=== PATIENT | male | born 1955 | race Two or more races ===

== ENCOUNTER → 2017-09-02 | Outpatient (CLI) | payer OTHER ==
[~2017-09-02] MED LIST: PERFLUTREN PROTEIN-A MICROSPHERES 0.22 MG/ML 3 ML VIAL IVP ONE
== END | disposition home or self-care (01) ==
LOC: CARDMN 10:30
PROVIDERS: ATTEND Internal Medicine Cardiovascular Disease
DX: I08.1 Rheumatic disorders of both mitral and tricuspid valves (principal); I50.9 Heart failure, unspecified
CPT/HCPCS: C8929; Z7610

== ENCOUNTER 2017-11-29 07:50 | Day surgery (SDC) | payer OTHER ==
[~2017-11-29] VITALS: Ht 172.7 cm; Wt 89.1 kg
[2017-11-29] MEDS ORDERED: 0.9% SODIUM CHLORIDE 10 ML SYRINGE IVP PRN (08:00)
[2017-11-29] MEDS ORDERED: METOPROLOL TARTRATE 50 MG TABLET PO PRN (08:00)
[2017-11-29] MEDS ORDERED: ASPI81 PO (09:17)
[2017-11-29] MEDS ORDERED: SACU1TAB PO (09:17)
[2017-11-29] MEDS ORDERED: ATOR40TA28 PO (09:17)
[2017-11-29] MEDS ORDERED: WARF3TAB29 PO (09:17)
[2017-11-29] MEDS ORDERED: EZET10 PO (09:17)
[2017-11-29] MEDS ORDERED: CARV12 PO (09:17)
[2017-11-29] MEDS ORDERED: FURO40 PO (09:17)
[2017-11-29 09:36] LABS: ANION GAP 7 mmol/L (8-16); CALCIUM, TOTAL 8.7 mg/dL (8.8-10.5); CARBON DIOXIDE 28 mmol/L (22-29); CHLORIDE 106 mmol/L (98-107); CREATININE 1.12 mg/dL (0.60-1.30); GLOMERULAR FILTR. RATE CALC > 60 mL/min (>60); GLUCOSE,RANDOM 101 mg/dL (70-110); POTASSIUM 3.7 mmol/L (3.5-5.1); SODIUM SERUM 141 mmol/L (136-145); UREA NITROGEN, BLOOD 22 mg/dL (7-18)
[2017-11-29] MEDS ORDERED: SODIUM CHLORIDE 0.9% 100 ML ONE ×2 (09:37→11:54)
[2017-11-29] MEDS ORDERED: IOVERSOL 350 MG/ML 150 ML VIAL ONE ×2 (09:37→11:53)
[2017-11-29 10:23] LABS: GLUCOMETER DEV NAME(LOC) SDS 5; GLUCOSE,POINT OF CARE 91 MG/DL (70-110)
[2017-11-29] MEDS ORDERED: SODIUM CHLORIDE 0.9% 250 ML IV ONE (10:30)
[2017-11-29] MEDS ORDERED: NITROGLYCERIN 400 MCG/SUBLINGUAL SPRAY 4.9 GM BOTTLE SL ONE ×2 (11:59→12:19)
[2017-11-29] MEDS ORDERED: METOPROLOL TARTRATE 5 MG/5 ML VIAL IVP ONE (12:12)
[2017-11-29] MEDS ORDERED: METOPROLOL TARTRATE 5 MG/5 ML VIAL ONE (12:45)
== END 2017-11-29 13:00 | disposition home or self-care (01) ==
LOC: SURGERY 07:50 → EDSTATUS 10:00 → SURGERY 13:00
PROVIDERS: ATTEND Internal Medicine Cardiovascular Disease
DX: I25.798 Atherosclerosis of other coronary artery bypass graft(s) with other forms of angina pectoris (principal); I50.9 Heart failure, unspecified; I25.2 Old myocardial infarction; I11.0 Hypertensive heart disease with heart failure; E78.00 Pure hypercholesterolemia, unspecified; I42.5 Other restrictive cardiomyopathy; E11.9 Type 2 diabetes mellitus without complications; I08.1 Rheumatic disorders of both mitral and tricuspid valves; Z79.82 Long term (current) use of aspirin; Z86.74 Personal history of sudden cardiac arrest; Z79.84 Long term (current) use of oral hypoglycemic drugs; Z79.01 Long term (current) use of anticoagulants; Z95.1 Presence of aortocoronary bypass graft; Z72.89 Other problems related to lifestyle; Z95.0 Presence of cardiac pacemaker; Z88.8 Allergy status to other drugs, medicaments and biological substances; Z98.890 Other specified postprocedural states; Z79.899 Other long term (current) drug therapy
CPT/HCPCS: 36415; 75574; 80048; 82962; 93005; J3490; J7050 ×2; Q9967

== ENCOUNTER → 2018-11-02 | Outpatient (CLI) | payer OTHER ==
[~2018-11-02] MED LIST changes: +ASPI81 PO; +ATOR40TA28 PO; +CARV12 PO; +EZET10 PO; +FURO40 PO; +IOVERSOL 350 MG/ML 150 ML VIAL ONE; -PERFLUTREN PROTEIN-A MICROSPHERES 0.22 MG/ML 3 ML VIAL IVP ONE; +SACU1TAB PO; +SODIUM CHLORIDE 0.9% 100 ML ONE; +WARF3TAB29 PO
== END | disposition home or self-care (01) ==
LOC: RADMN 08:04
PROVIDERS: ATTEND Internal Medicine Cardiovascular Disease
DX: I70.202 Unspecified atherosclerosis of native arteries of extremities, left leg (principal); K57.30 Diverticulosis of large intestine without perforation or abscess without bleeding; N40.0 Benign prostatic hyperplasia without lower urinary tract symptoms; K42.9 Umbilical hernia without obstruction or gangrene
CPT/HCPCS: 75635; J7050; Q9967

== ENCOUNTER 2019-07-04 15:00 | Inpatient (IN) | payer MEDICAID, OTHER ==
[~2019-07-04] VITALS: Ht 172.7 cm; Wt 70.3 kg
[2019-07-04 15:00] VITALS: BP 147/86
[~2019-07-04 15:00] MED LIST changes: +ASPI-728 PO; -ASPI81 PO; -EZET10 PO; +EZET10TA13 PO; -IOVERSOL 350 MG/ML 150 ML VIAL ONE; -SODIUM CHLORIDE 0.9% 100 ML ONE
[2019-07-04] MEDS ORDERED: DEXTROSE 50%-WATER 25 GM/50 ML SYRINGE IVP PRN (16:45)
[2019-07-04] MEDS ORDERED: TraMADol HCL 50 MG TABLET PO PRN (17:15)
[2019-07-04 18:01] LABS: GLUCOMETER DEV NAME(LOC) 2WR.2; GLUCOSE,POINT OF CARE 235 MG/DL (70-110)
[2019-07-04] MEDS: INSULIN LISPRO 100 UNITS/ML SQ SCH (18:13)
[2019-07-04] MEDS: INSULIN LISPRO 100 UNITS/ML SQ PRN (18:14)
[2019-07-04] MEDS: SENNA 187 MG TABLET PO SCH (21:00)
[2019-07-04] MEDS ORDERED: MYCOPHENOLATE MOFETIL 250 MG CAPSULE PO SCH (21:00)
[2019-07-04] MEDS ORDERED: TACROLIMUS ANHYDROUS 1 MG CAPSULE PO SCH (21:00)
[2019-07-04] MEDS: DOCUSATE SODIUM 250 MG CAPSULE PO SCH (21:00)
[2019-07-04] MEDS: MAGNESIUM OXIDE 400 MG TABLET PO SCH (21:18)
[2019-07-04] MEDS: PRAVASTATIN SODIUM 40 MG TABLET PO SCH (21:20)
[2019-07-04] MEDS: MELATONIN 5 MG TABLET PO SCH (21:22)
[2019-07-04] MEDS: HEPARIN SODIUM,PORCINE 5,000 UNITS/ML VIAL SQ SCH (21:22)
[2019-07-04 22:35] LABS: GLUCOMETER DEV NAME(LOC) 2WR.1C; GLUCOSE,POINT OF CARE 91 MG/DL (70-110)
[2019-07-04 22:35] LABS: GLUCOMETER DEV NAME(LOC) 2WR.1C; GLUCOSE,POINT OF CARE 63 MG/DL (70-110)
[2019-07-04 22:35] LABS: GLUCOMETER DEV NAME(LOC) 2WR.2; GLUCOSE,POINT OF CARE 71 MG/DL (70-110)
[2019-07-05] VITALS: BP 134/73
[2019-07-05 06:10] LABS: GLUCOMETER DEV NAME(LOC) 2WR.1C; GLUCOSE,POINT OF CARE 89 MG/DL (70-110)
[2019-07-05 07:01] LABS: EOSINOPHILS % (AUTO) 0.4 % (1.0-6.0); HEMATOCRIT 28.5 % (41-53); HEMOGLOBIN 9.4 g/dL (13.5-17.5); LYMPHOCYTES # (AUTO) 1.2 K/uL (1.0-4.8); LYMPHOCYTES % (AUTO) 21.6 % (22.0-44.0); MEAN CORPUSCULAR HEMOGLOBIN 34.2 pg (26.0-34.0); MEAN CORPUSCULAR HGB CONC 33.2 G/dL (31.0-37.0); MEAN CORPUSCULAR VOLUME 103 fL (80-100); MONOCYTES # (AUTO) 0.5 K/uL (0.1-1.0); MONOCYTES % (AUTO) 10.3 % (2.0-9.0); NEUTROPHILS # (AUTO) 3.6 K/uL (1.8-7.7); NEUTROPHILS % (AUTO) 66.7 % (40.0-70.0); PLATELET COUNT (AUTO) 334 K/uL (150-450); RED BLOOD CELL COUNT(AUTO) 2.76 MIL/uL (4.50-5.90); RED CELL DISTRIBUTION WIDTH 20.9 % (11.5-14.5)
[2019-07-05 07:12] LABS: ALBUMIN 3.2 g/dL (3.4-5.0); BILIRUBIN,TOTAL 0.4 mg/dL (0.1-1.0); CALCIUM, TOTAL 9.4 mg/dL (8.8-10.5); CREATININE 1.4 mg/dL (0.60-1.30); POTASSIUM 4.1 mmol/L (3.5-5.1); TOTAL PROTEIN, SERUM 6.2 g/dL (6.4-8.2)
[2019-07-05] MEDS ORDERED: TACROLIMUS ANHYDROUS 1 MG CAPSULE PO SCH ×2 (07:15→20:00)
[2019-07-05] MEDS: INSULIN LISPRO 100 UNITS/ML SQ SCH ×3 (07:30→17:46)
[2019-07-05] MEDS: TACROLIMUS ANHYDROUS 1 MG CAPSULE PO SCH ×2 (07:48→20:50)
[2019-07-05] MEDS: FAMOTIDINE 20 MG TABLET PO SCH (07:49)
[2019-07-05] MEDS: VITAMIN B COMP/VIT C/FOLIC ACID CAPSULE PO SCH (07:50)
[2019-07-05] MEDS: FERROUS SULFATE 325 MG EC TABLET PO SCH (07:50)
[2019-07-05] MEDS: MYCOPHENOLATE MOFETIL 250 MG CAPSULE PO SCH ×2 (07:50→20:50)
[2019-07-05] MEDS: PredniSONE 5 MG TABLET PO SCH (07:54)
[2019-07-05] MEDS: CHOLECALCIFEROL (VIT D3) 1,000 UNITS TABLET PO SCH (07:54)
[2019-07-05] MEDS: ASPIRIN 81 MG EC TABLET PO SCH (07:55)
[2019-07-05] MEDS: SERTRALINE HCL 50 MG TABLET PO SCH (07:55)
[2019-07-05] MEDS: DOCUSATE SODIUM 250 MG CAPSULE PO SCH ×2 (07:56→20:52)
[2019-07-05] MEDS: MAGNESIUM OXIDE 400 MG TABLET PO SCH ×2 (07:56→20:51)
[2019-07-05] MEDS: HEPARIN SODIUM,PORCINE 5,000 UNITS/ML VIAL SQ SCH ×2 (07:57→20:51)
[2019-07-05 08:00] VITALS: BP 139/76
[2019-07-05] MEDS ORDERED: FAMOTIDINE 20 MG TABLET PO SCH (09:00)
[2019-07-05 12:53] LABS: GLUCOMETER DEV NAME(LOC) 2WR.2; GLUCOSE,POINT OF CARE 162 MG/DL (70-110)
[2019-07-05] MEDS: INSULIN LISPRO 100 UNITS/ML SQ PRN (13:15)
[2019-07-05 15:10] VITALS: BP 119/67
[2019-07-05 17:57] LABS: GLUCOMETER DEV NAME(LOC) 2WR.1C; GLUCOSE,POINT OF CARE 133 MG/DL (70-110)
[2019-07-05] MEDS: PRAVASTATIN SODIUM 40 MG TABLET PO SCH (20:51)
[2019-07-05] MEDS: SENNA 187 MG TABLET PO SCH (20:52)
[2019-07-05] MEDS: MELATONIN 5 MG TABLET PO SCH (20:52)
[2019-07-05 21:39] LABS: GLUCOMETER DEV NAME(LOC) 2WR.1C; GLUCOSE,POINT OF CARE 110 MG/DL (70-110)
[2019-07-06 01:00] VITALS: BP 150/85
[2019-07-06 06:28] LABS: GLUCOMETER DEV NAME(LOC) 2WR.2; GLUCOSE,POINT OF CARE 89 MG/DL (70-110)
[2019-07-06] MEDS: TACROLIMUS ANHYDROUS 1 MG CAPSULE PO SCH ×2 (06:35→20:44)
[2019-07-06] MEDS: FAMOTIDINE 20 MG TABLET PO SCH (06:36)
[2019-07-06] MEDS: MYCOPHENOLATE MOFETIL 250 MG CAPSULE PO SCH ×2 (06:37→20:44)
[2019-07-06 07:30] VITALS: BP 158/80
[2019-07-06] MEDS: INSULIN LISPRO 100 UNITS/ML SQ SCH ×3 (07:30→18:24)
[2019-07-06] MEDS: SERTRALINE HCL 50 MG TABLET PO SCH (08:12)
[2019-07-06] MEDS: PredniSONE 5 MG TABLET PO SCH (08:12)
[2019-07-06] MEDS: SULFAMETHOX/TRIMETH DS 800-160 MG/TABLET PO SCH (08:13)
[2019-07-06] MEDS: MAGNESIUM OXIDE 400 MG TABLET PO SCH ×2 (08:13→20:45)
[2019-07-06] MEDS: CHOLECALCIFEROL (VIT D3) 1,000 UNITS TABLET PO SCH (08:13)
[2019-07-06] MEDS: VITAMIN B COMP/VIT C/FOLIC ACID CAPSULE PO SCH (08:13)
[2019-07-06] MEDS: DOCUSATE SODIUM 250 MG CAPSULE PO SCH ×2 (08:13→20:46)
[2019-07-06] MEDS: ASPIRIN 81 MG EC TABLET PO SCH (08:13)
[2019-07-06] MEDS: FERROUS SULFATE 325 MG EC TABLET PO SCH (08:13)
[2019-07-06] MEDS: HEPARIN SODIUM,PORCINE 5,000 UNITS/ML VIAL SQ SCH ×2 (08:14→20:45)
[2019-07-06] MEDS: INSULIN LISPRO 100 UNITS/ML SQ PRN ×3 (13:06→20:47)
[2019-07-06 19:20] VITALS: BP 118/68
[2019-07-06] MEDS: PRAVASTATIN SODIUM 40 MG TABLET PO SCH (20:45)
[2019-07-06] MEDS: MELATONIN 5 MG TABLET PO SCH (20:46)
[2019-07-06] MEDS: SENNA 187 MG TABLET PO SCH (20:46)
[2019-07-06] MEDS: ACETAMINOPHEN 325 MG TABLET PO PRN (21:02)
[2019-07-06 21:29] LABS: GLUCOMETER DEV NAME(LOC) 2WR.2; GLUCOSE,POINT OF CARE 222 MG/DL (70-110)
[2019-07-06 21:39] LABS: GLUCOMETER DEV NAME(LOC) 2WR.1C; GLUCOSE,POINT OF CARE 160 MG/DL (70-110)
[2019-07-06 21:39] LABS: GLUCOMETER DEV NAME(LOC) 2WR.1C; GLUCOSE,POINT OF CARE 203 MG/DL (70-110)
[2019-07-07 00:24] VITALS: BP 145/80
[2019-07-07 06:09] LABS: GLUCOMETER DEV NAME(LOC) 2WR.1C; GLUCOSE,POINT OF CARE 89 MG/DL (70-110)
[2019-07-07] MEDS: TACROLIMUS ANHYDROUS 1 MG CAPSULE PO SCH ×2 (06:29→20:19)
[2019-07-07] MEDS: MYCOPHENOLATE MOFETIL 250 MG CAPSULE PO SCH ×2 (06:29→20:19)
[2019-07-07] MEDS: FAMOTIDINE 20 MG TABLET PO SCH (06:32)
[2019-07-07 07:30] VITALS: BP 151/87
[2019-07-07] MEDS: INSULIN LISPRO 100 UNITS/ML SQ SCH ×3 (07:38→17:49)
[2019-07-07] MEDS: FERROUS SULFATE 325 MG EC TABLET PO SCH (07:39)
[2019-07-07] MEDS: HEPARIN SODIUM,PORCINE 5,000 UNITS/ML VIAL SQ SCH ×2 (07:39→20:51)
[2019-07-07] MEDS: CHOLECALCIFEROL (VIT D3) 1,000 UNITS TABLET PO SCH (07:45)
[2019-07-07] MEDS: PredniSONE 5 MG TABLET PO SCH (07:45)
[2019-07-07] MEDS: VITAMIN B COMP/VIT C/FOLIC ACID CAPSULE PO SCH (07:45)
[2019-07-07] MEDS: DOCUSATE SODIUM 250 MG CAPSULE PO SCH ×3 (07:45→21:00)
[2019-07-07] MEDS: MAGNESIUM OXIDE 400 MG TABLET PO SCH ×2 (07:45→20:51)
[2019-07-07] MEDS: SERTRALINE HCL 50 MG TABLET PO SCH (07:46)
[2019-07-07] MEDS: ASPIRIN 81 MG EC TABLET PO SCH (07:46)
[2019-07-07 15:26] VITALS: BP 131/75
[2019-07-07 17:19] LABS: GLUCOMETER DEV NAME(LOC) 2WR.1C; GLUCOSE,POINT OF CARE 109 MG/DL (70-110)
[2019-07-07 17:33] LABS: GLUCOMETER DEV NAME(LOC) 2WR.2; GLUCOSE,POINT OF CARE 200 MG/DL (70-110)
[2019-07-07] MEDS: INSULIN LISPRO 100 UNITS/ML SQ PRN ×2 (17:50→21:13)
[2019-07-07] MEDS: PRAVASTATIN SODIUM 40 MG TABLET PO SCH (20:50)
[2019-07-07] MEDS: SENNA 187 MG TABLET PO SCH ×2 (20:50→21:00)
[2019-07-07] MEDS: MELATONIN 5 MG TABLET PO SCH ×2 (20:50→21:00)
[2019-07-07] MEDS: ACETAMINOPHEN 325 MG TABLET PO PRN (20:55)
[2019-07-07 23:18] LABS: GLUCOMETER DEV NAME(LOC) 2WR.2; GLUCOSE,POINT OF CARE 182 MG/DL (70-110)
[2019-07-08 02:30] VITALS: BP 141/77
[2019-07-08] MEDS: FAMOTIDINE 20 MG TABLET PO SCH (06:26)
[2019-07-08] MEDS: TACROLIMUS ANHYDROUS 1 MG CAPSULE PO SCH ×2 (06:27→20:05)
[2019-07-08] MEDS: MYCOPHENOLATE MOFETIL 250 MG CAPSULE PO SCH ×2 (06:28→20:04)
[2019-07-08 06:38] LABS: GLUCOMETER DEV NAME(LOC) 2WR.2; GLUCOSE,POINT OF CARE 101 MG/DL (70-110)
[2019-07-08 08:08] VITALS: BP 152/85
[2019-07-08] MEDS: FERROUS SULFATE 325 MG EC TABLET PO SCH (08:19)
[2019-07-08] MEDS: ASPIRIN 81 MG EC TABLET PO SCH (08:19)
[2019-07-08] MEDS: VITAMIN B COMP/VIT C/FOLIC ACID CAPSULE PO SCH (08:19)
[2019-07-08] MEDS: MAGNESIUM OXIDE 400 MG TABLET PO SCH ×2 (08:19→20:04)
[2019-07-08] MEDS: CHOLECALCIFEROL (VIT D3) 1,000 UNITS TABLET PO SCH (08:19)
[2019-07-08] MEDS: SERTRALINE HCL 50 MG TABLET PO SCH (08:19)
[2019-07-08] MEDS: PredniSONE 5 MG TABLET PO SCH (08:20)
[2019-07-08] MEDS: HEPARIN SODIUM,PORCINE 5,000 UNITS/ML VIAL SQ SCH ×2 (08:22→20:05)
[2019-07-08] MEDS: INSULIN LISPRO 100 UNITS/ML SQ SCH ×3 (08:37→18:00)
[2019-07-08] MEDS: DOCUSATE SODIUM 250 MG CAPSULE PO SCH ×3 (08:38→20:17)
[2019-07-08 13:38] VITALS: BP 138/71
[2019-07-08] MEDS: AmLODIPine BESYLATE 2.5 MG TABLET PO SCH (13:39)
[2019-07-08 15:30] VITALS: BP 127/79
[2019-07-08 15:42] LABS: GLUCOMETER DEV NAME(LOC) 2WR.1C; GLUCOSE,POINT OF CARE 113 MG/DL (70-110)
[2019-07-08] MEDS: INSULIN LISPRO 100 UNITS/ML SQ PRN (18:00)
[2019-07-08] MEDS: MELATONIN 5 MG TABLET PO SCH (20:04)
[2019-07-08] MEDS: SENNA 187 MG TABLET PO SCH ×2 (20:04→20:17)
[2019-07-08] MEDS: PRAVASTATIN SODIUM 40 MG TABLET PO SCH (20:05)
[2019-07-08 20:31] LABS: GLUCOMETER DEV NAME(LOC) 2WR.2; GLUCOSE,POINT OF CARE 154 MG/DL (70-110)
[2019-07-09 04:38] VITALS: BP 155/82
[2019-07-09] MEDS: MYCOPHENOLATE MOFETIL 250 MG CAPSULE PO SCH ×2 (05:11→20:22)
[2019-07-09] MEDS: TACROLIMUS ANHYDROUS 1 MG CAPSULE PO SCH (05:11)
[2019-07-09] MEDS: FAMOTIDINE 20 MG TABLET PO SCH (05:11)
[2019-07-09] MEDS: FERROUS SULFATE 325 MG EC TABLET PO SCH (05:13)
[2019-07-09 05:15] LABS: GLUCOMETER DEV NAME(LOC) 2WR.1C; GLUCOSE,POINT OF CARE 168 MG/DL (70-110)
[2019-07-09 05:26] LABS: GLUCOMETER DEV NAME(LOC) 2WR.2; GLUCOSE,POINT OF CARE 111 MG/DL (70-110)
[2019-07-09] MEDS: INSULIN LISPRO 100 UNITS/ML SQ SCH ×3 (07:30→17:36)
[2019-07-09] MEDS: DOCUSATE SODIUM 250 MG CAPSULE PO SCH ×2 (09:00→20:23)
[2019-07-09 12:08] LABS: GLUCOMETER DEV NAME(LOC) 2WR.2; GLUCOSE,POINT OF CARE 162 MG/DL (70-110)
[2019-07-09] MEDS: MAGNESIUM OXIDE 400 MG TABLET PO SCH ×2 (12:42→20:23)
[2019-07-09] MEDS: ASPIRIN 81 MG EC TABLET PO SCH (12:43)
[2019-07-09] MEDS: VITAMIN B COMP/VIT C/FOLIC ACID CAPSULE PO SCH (12:44)
[2019-07-09] MEDS: SULFAMETHOX/TRIMETH DS 800-160 MG/TABLET PO SCH (12:44)
[2019-07-09] MEDS: CHOLECALCIFEROL (VIT D3) 1,000 UNITS TABLET PO SCH (12:44)
[2019-07-09] MEDS: HEPARIN SODIUM,PORCINE 5,000 UNITS/ML VIAL SQ SCH ×2 (12:47→20:23)
[2019-07-09 12:50] VITALS: BP 127/80
[2019-07-09] MEDS: INSULIN LISPRO 100 UNITS/ML SQ PRN (12:52)
[2019-07-09] MEDS: PredniSONE 5 MG TABLET PO SCH (12:58)
[2019-07-09] MEDS: SERTRALINE HCL 50 MG TABLET PO SCH (12:58)
[2019-07-09] MEDS: AmLODIPine BESYLATE 2.5 MG TABLET PO SCH (12:58)
[2019-07-09 14:35] VITALS: BP 120/80
[2019-07-09 16:00] VITALS: BP 151/77
[2019-07-09] MEDS: PRAVASTATIN SODIUM 40 MG TABLET PO SCH (20:22)
[2019-07-09] MEDS: MELATONIN 5 MG TABLET PO SCH (20:23)
[2019-07-09] MEDS: SENNA 187 MG TABLET PO SCH (20:24)
[2019-07-09 20:49] LABS: GLUCOMETER DEV NAME(LOC) 2WR.2; GLUCOSE,POINT OF CARE 125 MG/DL (70-110)
[2019-07-10 01:00] VITALS: BP 150/84
[2019-07-10 05:36] LABS: GLUCOMETER DEV NAME(LOC) 2WR.1C; GLUCOSE,POINT OF CARE 74 MG/DL (70-110)
[2019-07-10] MEDS: MYCOPHENOLATE MOFETIL 250 MG CAPSULE PO SCH ×2 (06:10→20:21)
[2019-07-10] MEDS: TACROLIMUS ANHYDROUS 1 MG CAPSULE PO SCH ×2 (06:11→20:21)
[2019-07-10] MEDS: FAMOTIDINE 20 MG TABLET PO SCH (06:11)
[2019-07-10 06:34] LABS: GLUCOMETER DEV NAME(LOC) 2WR.2; GLUCOSE,POINT OF CARE 99 MG/DL (70-110)
[2019-07-10] MEDS: AmLODIPine BESYLATE 2.5 MG TABLET PO SCH (08:22)
[2019-07-10] MEDS: FERROUS SULFATE 325 MG EC TABLET PO SCH (08:23)
[2019-07-10] MEDS: VITAMIN B COMP/VIT C/FOLIC ACID CAPSULE PO SCH (08:23)
[2019-07-10] MEDS: CHOLECALCIFEROL (VIT D3) 1,000 UNITS TABLET PO SCH (08:23)
[2019-07-10] MEDS: SERTRALINE HCL 50 MG TABLET PO SCH (08:23)
[2019-07-10] MEDS: PredniSONE 5 MG TABLET PO SCH (08:24)
[2019-07-10] MEDS: ASPIRIN 81 MG EC TABLET PO SCH (08:24)
[2019-07-10] MEDS: MAGNESIUM OXIDE 400 MG TABLET PO SCH ×2 (08:24→20:21)
[2019-07-10] MEDS: DOCUSATE SODIUM 250 MG CAPSULE PO SCH ×2 (08:25→20:22)
[2019-07-10] MEDS: HEPARIN SODIUM,PORCINE 5,000 UNITS/ML VIAL SQ SCH ×2 (08:25→20:22)
[2019-07-10] MEDS: INSULIN LISPRO 100 UNITS/ML SQ SCH ×3 (08:36→17:35)
[2019-07-10 08:44] VITALS: BP 134/92
[2019-07-10] MEDS: LIDOCAINE 5% TRANSDERMAL PATCH TD SCH (10:30)
[2019-07-10] MEDS: INSULIN LISPRO 100 UNITS/ML SQ PRN (12:21)
[2019-07-10] MEDS: ACETAMINOPHEN 325 MG TABLET PO PRN (14:23)
[2019-07-10 16:22] VITALS: BP 148/74
[2019-07-10 18:47] LABS: GLUCOMETER DEV NAME(LOC) 2WR.2; GLUCOSE,POINT OF CARE 125 MG/DL (70-110)
[2019-07-10] MEDS: PRAVASTATIN SODIUM 40 MG TABLET PO SCH (20:21)
[2019-07-10] MEDS: MELATONIN 5 MG TABLET PO SCH ×2 (20:21→22:46)
[2019-07-10] MEDS: SENNA 187 MG TABLET PO SCH (20:22)
[2019-07-10] MEDS: -LIDODERM PATCH NOTE- MISC SCH (20:22)
[2019-07-10 21:59] LABS: GLUCOMETER DEV NAME(LOC) 2WR.2; GLUCOSE,POINT OF CARE 122 MG/DL (70-110)
[2019-07-10 23:29] LABS: GLUCOMETER DEV NAME(LOC) 2WR.1C; GLUCOSE,POINT OF CARE 149 MG/DL (70-110)
[2019-07-10 23:53] VITALS: BP 143/75
[2019-07-11 05:44] LABS: GLUCOMETER DEV NAME(LOC) 2WR.1C; GLUCOSE,POINT OF CARE 92 MG/DL (70-110)
[2019-07-11] MEDS: FAMOTIDINE 20 MG TABLET PO SCH (06:28)
[2019-07-11] MEDS: TACROLIMUS ANHYDROUS 1 MG CAPSULE PO SCH ×2 (06:28→20:04)
[2019-07-11] MEDS: MYCOPHENOLATE MOFETIL 250 MG CAPSULE PO SCH ×2 (06:28→20:03)
[2019-07-11] MEDS: INSULIN LISPRO 100 UNITS/ML SQ SCH ×3 (07:30→17:48)
[2019-07-11 07:36] VITALS: BP 161/87
[2019-07-11] MEDS: HEPARIN SODIUM,PORCINE 5,000 UNITS/ML VIAL SQ SCH ×2 (08:46→20:06)
[2019-07-11] MEDS: PredniSONE 5 MG TABLET PO SCH (08:48)
[2019-07-11] MEDS: ASPIRIN 81 MG EC TABLET PO SCH (08:48)
[2019-07-11] MEDS: SERTRALINE HCL 50 MG TABLET PO SCH (08:48)
[2019-07-11] MEDS: CHOLECALCIFEROL (VIT D3) 1,000 UNITS TABLET PO SCH (08:49)
[2019-07-11] MEDS: AmLODIPine BESYLATE 2.5 MG TABLET PO SCH (08:49)
[2019-07-11] MEDS: MAGNESIUM OXIDE 400 MG TABLET PO SCH ×2 (08:49→20:06)
[2019-07-11] MEDS: FERROUS SULFATE 325 MG EC TABLET PO SCH (08:49)
[2019-07-11] MEDS: SULFAMETHOX/TRIMETH DS 800-160 MG/TABLET PO SCH (08:49)
[2019-07-11] MEDS: VITAMIN B COMP/VIT C/FOLIC ACID CAPSULE PO SCH (08:49)
[2019-07-11] MEDS: DOCUSATE SODIUM 250 MG CAPSULE PO SCH ×2 (08:50→20:09)
[2019-07-11] MEDS: LIDOCAINE 5% TRANSDERMAL PATCH TD SCH (08:59)
[2019-07-11] MEDS ORDERED: EPOETIN ALFA 10,000 UNITS/ML VIAL SQ SCH (09:00)
[2019-07-11] MEDS: INSULIN LISPRO 100 UNITS/ML SQ PRN ×3 (12:28→20:29)
[2019-07-11 15:28] LABS: GLUCOMETER DEV NAME(LOC) 2WR.1C; GLUCOSE,POINT OF CARE 199 MG/DL (70-110)
[2019-07-11 16:35] VITALS: BP 125/75
[2019-07-11 17:57] LABS: GLUCOMETER DEV NAME(LOC) 2WR.1C; GLUCOSE,POINT OF CARE 189 MG/DL (70-110)
[2019-07-11] MEDS: -LIDODERM PATCH NOTE- MISC SCH (20:05)
[2019-07-11] MEDS: PRAVASTATIN SODIUM 40 MG TABLET PO SCH (20:07)
[2019-07-11] MEDS: SENNA 187 MG TABLET PO SCH (20:08)
[2019-07-11] MEDS: MELATONIN 5 MG TABLET PO SCH (20:08)
[2019-07-11 22:31] LABS: GLUCOMETER DEV NAME(LOC) 2WR.1C; GLUCOSE,POINT OF CARE 151 MG/DL (70-110)
[2019-07-12 00:29] VITALS: BP 146/79
[2019-07-12 06:14] LABS: GLUCOMETER DEV NAME(LOC) 2WR.2; GLUCOSE,POINT OF CARE 97 MG/DL (70-110)
[2019-07-12] MEDS: FAMOTIDINE 20 MG TABLET PO SCH (06:24)
[2019-07-12] MEDS: MYCOPHENOLATE MOFETIL 250 MG CAPSULE PO SCH ×2 (06:24→21:13)
[2019-07-12] MEDS: TACROLIMUS ANHYDROUS 1 MG CAPSULE PO SCH ×2 (06:25→21:12)
[2019-07-12 07:29] VITALS: BP 142/87
[2019-07-12] MEDS: LIDOCAINE 5% TRANSDERMAL PATCH TD SCH (07:57)
[2019-07-12] MEDS: DOCUSATE SODIUM 250 MG CAPSULE PO SCH ×2 (07:57→21:00)
[2019-07-12] MEDS: HEPARIN SODIUM,PORCINE 5,000 UNITS/ML VIAL SQ SCH ×2 (07:58→21:14)
[2019-07-12] MEDS: VITAMIN B COMP/VIT C/FOLIC ACID CAPSULE PO SCH (07:59)
[2019-07-12] MEDS: MAGNESIUM OXIDE 400 MG TABLET PO SCH ×2 (07:59→21:13)
[2019-07-12] MEDS: ASPIRIN 81 MG EC TABLET PO SCH (07:59)
[2019-07-12] MEDS: CHOLECALCIFEROL (VIT D3) 1,000 UNITS TABLET PO SCH (07:59)
[2019-07-12] MEDS: FERROUS SULFATE 325 MG EC TABLET PO SCH (07:59)
[2019-07-12] MEDS: SERTRALINE HCL 50 MG TABLET PO SCH (07:59)
[2019-07-12] MEDS: PredniSONE 5 MG TABLET PO SCH (07:59)
[2019-07-12] MEDS: INSULIN LISPRO 100 UNITS/ML SQ SCH ×3 (08:01→18:19)
[2019-07-12] MEDS: INSULIN LISPRO 100 UNITS/ML SQ PRN ×3 (12:23→21:18)
[2019-07-12 15:05] VITALS: BP 140/82
[2019-07-12 15:20] LABS: GLUCOMETER DEV NAME(LOC) 2WR.1C; GLUCOSE,POINT OF CARE 181 MG/DL (70-110)
[2019-07-12] MEDS: ACETAMINOPHEN 325 MG TABLET PO PRN (17:11)
[2019-07-12 18:25] LABS: GLUCOMETER DEV NAME(LOC) 2WR.2; GLUCOSE,POINT OF CARE 200 MG/DL (70-110)
[2019-07-12] MEDS: MELATONIN 5 MG TABLET PO SCH (21:00)
[2019-07-12] MEDS: -LIDODERM PATCH NOTE- MISC SCH (21:00)
[2019-07-12] MEDS: SENNA 187 MG TABLET PO SCH (21:00)
[2019-07-12] MEDS: PRAVASTATIN SODIUM 40 MG TABLET PO SCH (21:13)
[2019-07-12 23:38] LABS: GLUCOMETER DEV NAME(LOC) 2WR.1C; GLUCOSE,POINT OF CARE 160 MG/DL (70-110)
[2019-07-13] VITALS: BP 143/85
[2019-07-13] MEDS: FAMOTIDINE 20 MG TABLET PO SCH (06:04)
[2019-07-13] MEDS: MYCOPHENOLATE MOFETIL 250 MG CAPSULE PO SCH ×2 (06:05→20:36)
[2019-07-13] MEDS: TACROLIMUS ANHYDROUS 1 MG CAPSULE PO SCH ×2 (06:05→20:36)
[2019-07-13] MEDS: MAGNESIUM OXIDE 400 MG TABLET PO SCH ×2 (07:47→20:35)
[2019-07-13] MEDS: VITAMIN B COMP/VIT C/FOLIC ACID CAPSULE PO SCH (07:47)
[2019-07-13] MEDS: CHOLECALCIFEROL (VIT D3) 1,000 UNITS TABLET PO SCH (07:48)
[2019-07-13] MEDS: ASPIRIN 81 MG EC TABLET PO SCH (07:48)
[2019-07-13] MEDS: DOCUSATE SODIUM 250 MG CAPSULE PO SCH ×3 (07:49→20:37)
[2019-07-13] MEDS: SERTRALINE HCL 50 MG TABLET PO SCH (07:49)
[2019-07-13] MEDS: SULFAMETHOX/TRIMETH DS 800-160 MG/TABLET PO SCH (07:51)
[2019-07-13] MEDS: FERROUS SULFATE 325 MG EC TABLET PO SCH (07:52)
[2019-07-13] MEDS: PredniSONE 5 MG TABLET PO SCH (07:52)
[2019-07-13] MEDS: HEPARIN SODIUM,PORCINE 5,000 UNITS/ML VIAL SQ SCH ×2 (07:53→20:37)
[2019-07-13] MEDS: INSULIN LISPRO 100 UNITS/ML SQ SCH ×4 (08:02→17:43)
[2019-07-13] MEDS: LIDOCAINE 5% TRANSDERMAL PATCH TD SCH (09:00)
[2019-07-13 10:41] VITALS: BP 161/82
[2019-07-13 11:00] VITALS: BP 147/83
[2019-07-13 11:02] VITALS: BP 113/67
[2019-07-13] MEDS: INSULIN LISPRO 100 UNITS/ML SQ PRN ×3 (15:06→20:39)
[2019-07-13 15:13] LABS: GLUCOMETER DEV NAME(LOC) 2WR.2; GLUCOSE,POINT OF CARE 187 MG/DL (70-110)
[2019-07-13 15:13] LABS: GLUCOMETER DEV NAME(LOC) 2WR.1C; GLUCOSE,POINT OF CARE 112 MG/DL (70-110)
[2019-07-13 16:00] VITALS: BP 146/76
[2019-07-13 19:01] LABS: GLUCOMETER DEV NAME(LOC) 2WR.1C; GLUCOSE,POINT OF CARE 227 MG/DL (70-110)
[2019-07-13] MEDS: ACETAMINOPHEN 325 MG TABLET PO PRN (19:29)
[2019-07-13] MEDS: PRAVASTATIN SODIUM 40 MG TABLET PO SCH (20:35)
[2019-07-13] MEDS: -LIDODERM PATCH NOTE- MISC SCH (20:37)
[2019-07-13] MEDS: SENNA 187 MG TABLET PO SCH (20:37)
[2019-07-13] MEDS: MELATONIN 5 MG TABLET PO SCH (20:37)
[2019-07-13 22:04] LABS: GLUCOMETER DEV NAME(LOC) 2WR.2; GLUCOSE,POINT OF CARE 178 MG/DL (70-110)
[2019-07-13 23:54] VITALS: BP 151/84
[2019-07-14] MEDS: MYCOPHENOLATE MOFETIL 250 MG CAPSULE PO SCH ×2 (06:18→20:18)
[2019-07-14] MEDS: FAMOTIDINE 20 MG TABLET PO SCH (06:18)
[2019-07-14] MEDS: TACROLIMUS ANHYDROUS 1 MG CAPSULE PO SCH ×2 (06:19→20:18)
[2019-07-14 06:28] LABS: GLUCOMETER DEV NAME(LOC) 2WR.2; GLUCOSE,POINT OF CARE 112 MG/DL (70-110)
[2019-07-14 06:37] LABS: BASOPHILS % (AUTO) 0.9 % (0.0-2.0); EOSINOPHILS % (AUTO) 0.1 % (1.0-6.0); HEMATOCRIT 34.1 % (41-53); LYMPHOCYTES % (AUTO) 13.5 % (22.0-44.0); MEAN CORPUSCULAR HEMOGLOBIN 33.5 pg (26.0-34.0); MEAN CORPUSCULAR HGB CONC 32.3 G/dL (31.0-37.0); MEAN CORPUSCULAR VOLUME 104 fL (80-100); MONOCYTES # (AUTO) 0.3 K/uL (0.1-1.0); MONOCYTES % (AUTO) 3.4 % (2.0-9.0); NEUTROPHILS # (AUTO) 6.3 K/uL (1.8-7.7); NEUTROPHILS % (AUTO) 82.1 % (40.0-70.0); PLATELET COUNT (AUTO) 256 K/uL (150-450); RED BLOOD CELL COUNT(AUTO) 3.29 MIL/uL (4.50-5.90); RED CELL DISTRIBUTION WIDTH 19.1 % (11.5-14.5)
[2019-07-14 06:47] LABS: CALCIUM, TOTAL 9.5 mg/dL (8.8-10.5); CREATININE 1.99 mg/dL (0.60-1.30); MAGNESIUM 1.6 mg/dL (1.80-2.40); POTASSIUM 4.9 mmol/L (3.5-5.1)
[2019-07-14] MEDS: MAGNESIUM OXIDE 400 MG TABLET PO SCH ×3 (08:38→20:19)
[2019-07-14] MEDS: FERROUS SULFATE 325 MG EC TABLET PO SCH (08:38)
[2019-07-14] MEDS: DOCUSATE SODIUM 250 MG CAPSULE PO SCH ×2 (08:39→09:00)
[2019-07-14] MEDS: VITAMIN B COMP/VIT C/FOLIC ACID CAPSULE PO SCH (08:39)
[2019-07-14] MEDS: ASPIRIN 81 MG EC TABLET PO SCH (08:39)
[2019-07-14] MEDS: SERTRALINE HCL 50 MG TABLET PO SCH (08:39)
[2019-07-14] MEDS: CHOLECALCIFEROL (VIT D3) 1,000 UNITS TABLET PO SCH (08:39)
[2019-07-14] MEDS: PredniSONE 5 MG TABLET PO SCH (08:39)
[2019-07-14] MEDS: HEPARIN SODIUM,PORCINE 5,000 UNITS/ML VIAL SQ SCH ×2 (08:42→20:18)
[2019-07-14] MEDS: LIDOCAINE 5% TRANSDERMAL PATCH TD SCH (08:43)
[2019-07-14] MEDS: INSULIN LISPRO 100 UNITS/ML SQ SCH ×3 (08:44→17:28)
[2019-07-14 09:13] VITALS: BP 151/84
[2019-07-14] MEDS ORDERED: SENNA 187 MG TABLET PO PRN (14:00)
[2019-07-14] MEDS ORDERED: DOCUSATE SODIUM 250 MG CAPSULE PO PRN (14:00)
[2019-07-14] MEDS ORDERED: SODIUM CHLORIDE 0.9% 1,000 ML ONE (14:52)
[2019-07-14 15:03] VITALS: BP 137/74
[2019-07-14] MEDS: SODIUM CHLORIDE 0.9% 1,000 ML IV SCH (15:11)
[2019-07-14] MEDS: INSULIN LISPRO 100 UNITS/ML SQ PRN (17:29)
[2019-07-14 17:34] LABS: APPEARANCE,URINE CLEAR (CLEAR); BILIRUBIN,URINE NEGATIVE (NEGATIVE); CREATININE,URINE RANDOM 45.5 mg/dL (30.0-125.0); GLUCOSE, URINE (UA) NEGATIVE (NEGATIVE); KETONES,URINE NEGATIVE (NEGATIVE); LEUKOCYTE ESTERASE ,URINE TRACE (NEGATIVE); NITRATE,URINE NEGATIVE (NEGATIVE); OCCULT BLOOD,URINE NEGATIVE (NEGATIVE); PH,URINE 5.5 (5.0-8.0); PROTEIN,URINE NEGATIVE (NEGATIVE); PROTEIN,URINE RANDOM 18 mg/dL (0-11.9); UROBILINOGEN,URINE 0.2 mg/dL (<=1.0)
[2019-07-14 17:40] LABS: RBC,URINE None Seen /HPF (0-2); WBC,URINE 0-2 /HPF (0-5)
[2019-07-14 17:41] LABS: BACTERIA,URINE None Seen /HPF (None Seen); SQUAMOUS EPITHELIAL CELL,UR Rare /LPF (None Seen)
[2019-07-14 17:55] LABS: GLUCOMETER DEV NAME(LOC) 2WR.2; GLUCOSE,POINT OF CARE 196 MG/DL (70-110)
[2019-07-14] MEDS: ACETAMINOPHEN 325 MG TABLET PO PRN (18:03)
[2019-07-14] MEDS: -LIDODERM PATCH NOTE- MISC SCH (20:20)
[2019-07-14] MEDS: PRAVASTATIN SODIUM 40 MG TABLET PO SCH (20:20)
[2019-07-14 21:40] LABS: GLUCOMETER DEV NAME(LOC) 2WR.2; GLUCOSE,POINT OF CARE 102 MG/DL (70-110)
[2019-07-14 23:07] LABS: GLUCOMETER DEV NAME(LOC) 2WR.1C; GLUCOSE,POINT OF CARE 130 MG/DL (70-110)
[2019-07-15 00:30] VITALS: BP 154/94
[2019-07-15] MEDS: TACROLIMUS ANHYDROUS 1 MG CAPSULE PO SCH ×2 (06:06→20:30)
[2019-07-15] MEDS: FAMOTIDINE 20 MG TABLET PO SCH (06:06)
[2019-07-15] MEDS: MYCOPHENOLATE MOFETIL 250 MG CAPSULE PO SCH ×2 (06:06→20:31)
[2019-07-15 06:19] LABS: GLUCOMETER DEV NAME(LOC) 2WR.2; GLUCOSE,POINT OF CARE 111 MG/DL (70-110)
[2019-07-15 07:35] VITALS: BP 162/88
[2019-07-15 07:39] LABS: CALCIUM, TOTAL 9.4 mg/dL (8.8-10.5); CREATININE 1.54 mg/dL (0.60-1.30); POTASSIUM 4.3 mmol/L (3.5-5.1)
[2019-07-15 07:45] VITALS: BP 152/88
[2019-07-15] MEDS: HEPARIN SODIUM,PORCINE 5,000 UNITS/ML VIAL SQ SCH ×2 (08:44→20:31)
[2019-07-15] MEDS: VITAMIN B COMP/VIT C/FOLIC ACID CAPSULE PO SCH (08:45)
[2019-07-15] MEDS: FERROUS SULFATE 325 MG EC TABLET PO SCH (08:45)
[2019-07-15] MEDS: CHOLECALCIFEROL (VIT D3) 1,000 UNITS TABLET PO SCH (08:45)
[2019-07-15] MEDS: ASPIRIN 81 MG EC TABLET PO SCH (08:45)
[2019-07-15] MEDS: MAGNESIUM OXIDE 400 MG TABLET PO SCH ×3 (08:46→20:31)
[2019-07-15] MEDS: PredniSONE 5 MG TABLET PO SCH (08:48)
[2019-07-15] MEDS: LIDOCAINE 5% TRANSDERMAL PATCH TD SCH (08:48)
[2019-07-15] MEDS: SERTRALINE HCL 50 MG TABLET PO SCH (08:49)
[2019-07-15] MEDS: INSULIN LISPRO 100 UNITS/ML SQ SCH ×3 (08:51→17:57)
[2019-07-15] MEDS: SODIUM CHLORIDE 0.9% 1,000 ML IV SCH (09:00)
[2019-07-15 16:00] VITALS: BP 139/80
[2019-07-15 17:31] LABS: GLUCOMETER DEV NAME(LOC) 2WR.2; GLUCOSE,POINT OF CARE 169 MG/DL (70-110)
[2019-07-15] MEDS: INSULIN LISPRO 100 UNITS/ML SQ PRN ×2 (17:58→21:50)
[2019-07-15] MEDS: PRAVASTATIN SODIUM 40 MG TABLET PO SCH (20:31)
[2019-07-15] MEDS: -LIDODERM PATCH NOTE- MISC SCH (20:32)
[2019-07-15 21:48] LABS: GLUCOMETER DEV NAME(LOC) 2WR.2; GLUCOSE,POINT OF CARE 177 MG/DL (70-110)
[2019-07-15 23:06] LABS: GLUCOMETER DEV NAME(LOC) 2WR.1C; GLUCOSE,POINT OF CARE 129 MG/DL (70-110)
[2019-07-15 23:30] VITALS: BP 162/92
[2019-07-15 23:50] VITALS: BP 158/92
[2019-07-16] VITALS (7 sets, daily range): BP systolic 109–159; BP diastolic 64–87
[2019-07-16 06:18] LABS: GLUCOMETER DEV NAME(LOC) 2WR.2; GLUCOSE,POINT OF CARE 98 MG/DL (70-110)
[2019-07-16] MEDS: MYCOPHENOLATE MOFETIL 250 MG CAPSULE PO SCH ×2 (06:19→20:06)
[2019-07-16] MEDS: FAMOTIDINE 20 MG TABLET PO SCH (06:19)
[2019-07-16] MEDS: TACROLIMUS ANHYDROUS 1 MG CAPSULE PO SCH ×2 (06:19→20:04)
[2019-07-16 06:59] LABS: ALBUMIN 3.3 g/dL (3.4-5.0); BILIRUBIN,TOTAL 0.3 mg/dL (0.1-1.0); CALCIUM, TOTAL 9.7 mg/dL (8.8-10.5); CREATININE 1.35 mg/dL (0.60-1.30); POTASSIUM 4.5 mmol/L (3.5-5.1); TOTAL PROTEIN, SERUM 6.2 g/dL (6.4-8.2)
[2019-07-16] MEDS: HEPARIN SODIUM,PORCINE 5,000 UNITS/ML VIAL SQ SCH ×2 (08:13→20:13)
[2019-07-16] MEDS: VITAMIN B COMP/VIT C/FOLIC ACID CAPSULE PO SCH (08:13)
[2019-07-16] MEDS: PredniSONE 5 MG TABLET PO SCH (08:13)
[2019-07-16] MEDS: MAGNESIUM OXIDE 400 MG TABLET PO SCH ×3 (08:13→20:05)
[2019-07-16] MEDS: SULFAMETHOX/TRIMETH DS 800-160 MG/TABLET PO SCH (08:14)
[2019-07-16] MEDS: FERROUS SULFATE 325 MG EC TABLET PO SCH (08:14)
[2019-07-16] MEDS: ASPIRIN 81 MG EC TABLET PO SCH (08:14)
[2019-07-16] MEDS: CHOLECALCIFEROL (VIT D3) 1,000 UNITS TABLET PO SCH (08:14)
[2019-07-16] MEDS: SERTRALINE HCL 50 MG TABLET PO SCH (08:14)
[2019-07-16] MEDS: INSULIN LISPRO 100 UNITS/ML SQ SCH ×3 (08:16→17:33)
[2019-07-16] MEDS: LIDOCAINE 5% TRANSDERMAL PATCH TD SCH (08:53)
[2019-07-16] MEDS: INSULIN LISPRO 100 UNITS/ML SQ PRN ×2 (12:08→17:34)
[2019-07-16 16:28] LABS: GLUCOMETER DEV NAME(LOC) 2WR.1C; GLUCOSE,POINT OF CARE 235 MG/DL (70-110)
[2019-07-16 17:39] LABS: GLUCOMETER DEV NAME(LOC) 2WR.2; GLUCOSE,POINT OF CARE 231 MG/DL (70-110)
[2019-07-16] MEDS ORDERED: CHOL100062 PO (19:02)
[2019-07-16] MEDS ORDERED: FERR-89 PO (19:48)
[2019-07-16] MEDS ORDERED: PRED5 PO (19:48)
[2019-07-16] MEDS ORDERED: VALG450T3 PO (19:48)
[2019-07-16] MEDS ORDERED: METO25XL PO (19:48)
[2019-07-16] MEDS ORDERED: INSU100C14 SQ ×2 (19:48)
[2019-07-16] MEDS ORDERED: PRAV40TA3 PO (19:48)
[2019-07-16] MEDS ORDERED: MAGN400T25 PO ×2 (19:48)
[2019-07-16] MEDS ORDERED: LIDO700A15 TP ×2 (19:48→19:49)
[2019-07-16] MEDS ORDERED: [UNRECOGNIZED DRUG - CODE] PO ×2 (19:48)
[2019-07-16] MEDS ORDERED: SULF1TAB42 PO (19:48)
[2019-07-16] MEDS ORDERED: FAMO10TA39 PO (19:48)
[2019-07-16] MEDS ORDERED: MAGOX PO (19:48)
[2019-07-16] MEDS ORDERED: B CO1CAP6 PO (19:51)
[2019-07-16] MEDS: ACETAMINOPHEN 325 MG TABLET PO PRN (20:02)
[2019-07-16] MEDS: PRAVASTATIN SODIUM 40 MG TABLET PO SCH (20:08)
[2019-07-16] MEDS: METOPROLOL SUCCINATE 25 MG ER TABLET PO SCH (20:11)
[2019-07-16] MEDS: -LIDODERM PATCH NOTE- MISC SCH (21:00)
[2019-07-16 21:59] LABS: GLUCOMETER DEV NAME(LOC) 2WR.1C; GLUCOSE,POINT OF CARE 115 MG/DL (70-110)
[2019-07-17] VITALS (7 sets, daily range): BP systolic 118–154; BP diastolic 73–87
[2019-07-17 06:10] LABS: GLUCOMETER DEV NAME(LOC) 2WR.1C; GLUCOSE,POINT OF CARE 112 MG/DL (70-110)
[2019-07-17] MEDS: MYCOPHENOLATE MOFETIL 250 MG CAPSULE PO SCH ×2 (06:19→20:15)
[2019-07-17] MEDS: FAMOTIDINE 20 MG TABLET PO SCH (06:20)
[2019-07-17] MEDS: TACROLIMUS ANHYDROUS 1 MG CAPSULE PO SCH ×2 (06:20→20:13)
[2019-07-17] MEDS: MAGNESIUM OXIDE 400 MG TABLET PO SCH ×3 (08:32→20:16)
[2019-07-17] MEDS: VITAMIN B COMP/VIT C/FOLIC ACID CAPSULE PO SCH (08:32)
[2019-07-17] MEDS: ASPIRIN 81 MG EC TABLET PO SCH (08:33)
[2019-07-17] MEDS: PredniSONE 5 MG TABLET PO SCH (08:33)
[2019-07-17] MEDS: FERROUS SULFATE 325 MG EC TABLET PO SCH (08:33)
[2019-07-17] MEDS: CHOLECALCIFEROL (VIT D3) 1,000 UNITS TABLET PO SCH (08:33)
[2019-07-17] MEDS: HEPARIN SODIUM,PORCINE 5,000 UNITS/ML VIAL SQ SCH ×2 (08:33→20:29)
[2019-07-17] MEDS: SERTRALINE HCL 50 MG TABLET PO SCH (08:33)
[2019-07-17] MEDS: METOPROLOL SUCCINATE 25 MG ER TABLET PO SCH ×2 (08:34→20:19)
[2019-07-17] MEDS: INSULIN LISPRO 100 UNITS/ML SQ SCH ×3 (08:35→17:14)
[2019-07-17] MEDS: LIDOCAINE 5% TRANSDERMAL PATCH TD SCH (08:38)
[2019-07-17] MEDS: INSULIN LISPRO 100 UNITS/ML SQ PRN ×2 (17:14→20:28)
[2019-07-17 17:24] LABS: GLUCOMETER DEV NAME(LOC) 2WR.1C; GLUCOSE,POINT OF CARE 131 MG/DL (70-110)
[2019-07-17 18:14] LABS: GLUCOMETER DEV NAME(LOC) 2WR.2; GLUCOSE,POINT OF CARE 215 MG/DL (70-110)
[2019-07-17] MEDS: PRAVASTATIN SODIUM 40 MG TABLET PO SCH (20:14)
[2019-07-17] MEDS: ACETAMINOPHEN 325 MG TABLET PO PRN (20:35)
[2019-07-17] MEDS: -LIDODERM PATCH NOTE- MISC SCH (21:00)
[2019-07-17 21:06] LABS: GLUCOMETER DEV NAME(LOC) 2WR.2; GLUCOSE,POINT OF CARE 151 MG/DL (70-110)
[2019-07-18] MEDS: FERROUS SULFATE 325 MG EC TABLET PO SCH (05:32)
[2019-07-18] MEDS: TACROLIMUS ANHYDROUS 1 MG CAPSULE PO SCH ×2 (05:33→20:32)
[2019-07-18] MEDS: MYCOPHENOLATE MOFETIL 250 MG CAPSULE PO SCH ×2 (05:33→20:31)
[2019-07-18] MEDS: FAMOTIDINE 20 MG TABLET PO SCH (05:34)
[2019-07-18 06:16] VITALS: BP 153/86
[2019-07-18 06:33] LABS: GLUCOMETER DEV NAME(LOC) 2WR.1C; GLUCOSE,POINT OF CARE 104 MG/DL (70-110)
[2019-07-18] MEDS: MAGNESIUM OXIDE 400 MG TABLET PO SCH ×3 (09:00→20:32)
[2019-07-18] MEDS: LIDOCAINE 5% TRANSDERMAL PATCH TD SCH (09:00)
[2019-07-18 12:06] VITALS: BP_SYST 138; BP_SYST 198; BP_DIAS 79
[2019-07-18] MEDS: CHOLECALCIFEROL (VIT D3) 1,000 UNITS TABLET PO SCH (12:40)
[2019-07-18] MEDS: HEPARIN SODIUM,PORCINE 5,000 UNITS/ML VIAL SQ SCH ×2 (12:40→20:40)
[2019-07-18] MEDS: SERTRALINE HCL 50 MG TABLET PO SCH (12:41)
[2019-07-18] MEDS: ASPIRIN 81 MG EC TABLET PO SCH (12:41)
[2019-07-18] MEDS: VITAMIN B COMP/VIT C/FOLIC ACID CAPSULE PO SCH (12:41)
[2019-07-18] MEDS: SULFAMETHOX/TRIMETH DS 800-160 MG/TABLET PO SCH (12:41)
[2019-07-18 15:05] VITALS: BP 123/69
[2019-07-18 15:08] LABS: GLUCOMETER DEV NAME(LOC) 2WR.2; GLUCOSE,POINT OF CARE 194 MG/DL (70-110)
[2019-07-18] MEDS: INSULIN LISPRO 100 UNITS/ML SQ PRN ×2 (18:10→21:00)
[2019-07-18 18:22] LABS: GLUCOMETER DEV NAME(LOC) 2WR.1C; GLUCOSE,POINT OF CARE 207 MG/DL (70-110)
[2019-07-18] MEDS: PRAVASTATIN SODIUM 40 MG TABLET PO SCH (20:33)
[2019-07-18] MEDS: MAGNESIUM CHLORIDE 64 MG ER TABLET PO SCH (20:35)
[2019-07-18] MEDS: -LIDODERM PATCH NOTE- MISC SCH (21:00)
[2019-07-18 21:34] LABS: GLUCOMETER DEV NAME(LOC) 2WR.2; GLUCOSE,POINT OF CARE 173 MG/DL (70-110)
[2019-07-18] MEDS: ACETAMINOPHEN 325 MG TABLET PO PRN (21:43)
[2019-07-19] VITALS: BP 137/86
[2019-07-19] MEDS: FAMOTIDINE 20 MG TABLET PO SCH (06:14)
[2019-07-19] MEDS: TACROLIMUS ANHYDROUS 1 MG CAPSULE PO SCH ×2 (06:14→20:28)
[2019-07-19 06:15] LABS: GLUCOMETER DEV NAME(LOC) 2WR.1C; GLUCOSE,POINT OF CARE 113 MG/DL (70-110)
[2019-07-19] MEDS: MYCOPHENOLATE MOFETIL 250 MG CAPSULE PO SCH ×2 (06:15→20:30)
[2019-07-19] MEDS: FERROUS SULFATE 325 MG EC TABLET PO SCH (07:53)
[2019-07-19] MEDS: MAGNESIUM CHLORIDE 64 MG ER TABLET PO SCH ×2 (08:43→20:33)
[2019-07-19] MEDS: PredniSONE 10 MG TABLET PO SCH (08:44)
[2019-07-19] MEDS: CHOLECALCIFEROL (VIT D3) 1,000 UNITS TABLET PO SCH (08:44)
[2019-07-19] MEDS: MAGNESIUM OXIDE 400 MG TABLET PO SCH ×2 (08:44→12:13)
[2019-07-19] MEDS: SitaGLIPtin PHOSPHATE 50 MG TABLET PO SCH (08:44)
[2019-07-19] MEDS: SERTRALINE HCL 50 MG TABLET PO SCH (08:44)
[2019-07-19] MEDS: VITAMIN B COMP/VIT C/FOLIC ACID CAPSULE PO SCH (08:44)
[2019-07-19] MEDS: ASPIRIN 81 MG EC TABLET PO SCH (08:44)
[2019-07-19] MEDS: HEPARIN SODIUM,PORCINE 5,000 UNITS/ML VIAL SQ SCH ×2 (08:57→20:34)
[2019-07-19] MEDS: LIDOCAINE 5% TRANSDERMAL PATCH TD SCH (08:58)
[2019-07-19 10:47] VITALS: BP 131/78
[2019-07-19] MEDS: INSULIN LISPRO 100 UNITS/ML SQ PRN ×3 (12:52→20:50)
[2019-07-19 16:30] VITALS: BP 111/70
[2019-07-19 17:27] LABS: GLUCOMETER DEV NAME(LOC) 2WR.2; GLUCOSE,POINT OF CARE 185 MG/DL (70-110)
[2019-07-19] MEDS ORDERED: TACR1 PO ×2 (18:54)
[2019-07-19] MEDS ORDERED: PRED10 PO (18:54)
[2019-07-19] MEDS ORDERED: SITA50 PO (18:55)
[2019-07-19] MEDS: PRAVASTATIN SODIUM 40 MG TABLET PO SCH (20:31)
[2019-07-19] MEDS: -LIDODERM PATCH NOTE- MISC SCH (20:55)
[2019-07-19 21:16] LABS: GLUCOMETER DEV NAME(LOC) 2WR.2; GLUCOSE,POINT OF CARE 172 MG/DL (70-110)
[2019-07-19 23:56] LABS: GLUCOMETER DEV NAME(LOC) 2WR.1C; GLUCOSE,POINT OF CARE 176 MG/DL (70-110)
[2019-07-20 05:00] VITALS: BP 136/78
[2019-07-20] MEDS: MYCOPHENOLATE MOFETIL 250 MG CAPSULE PO SCH ×2 (06:32→20:47)
[2019-07-20] MEDS: FAMOTIDINE 20 MG TABLET PO SCH (06:32)
[2019-07-20 07:10] LABS: GLUCOMETER DEV NAME(LOC) 2WR.1C; GLUCOSE,POINT OF CARE 121 MG/DL (70-110)
[2019-07-20 07:45] VITALS: BP 149/71
[2019-07-20 08:31] LABS: CALCIUM, TOTAL 9.1 mg/dL (8.8-10.5); CREATININE 1.8 mg/dL (0.60-1.30); MAGNESIUM 1.6 mg/dL (1.80-2.40); POTASSIUM 5.2 mmol/L (3.5-5.1)
[2019-07-20] MEDS: HEPARIN SODIUM,PORCINE 5,000 UNITS/ML VIAL SQ SCH ×2 (08:34→20:50)
[2019-07-20] MEDS: FERROUS SULFATE 325 MG EC TABLET PO SCH (08:34)
[2019-07-20] MEDS: PredniSONE 10 MG TABLET PO SCH (08:34)
[2019-07-20] MEDS: ASPIRIN 81 MG EC TABLET PO SCH (08:34)
[2019-07-20] MEDS: VITAMIN B COMP/VIT C/FOLIC ACID CAPSULE PO SCH (08:34)
[2019-07-20] MEDS: SULFAMETHOX/TRIMETH DS 800-160 MG/TABLET PO SCH (08:34)
[2019-07-20] MEDS: SitaGLIPtin PHOSPHATE 50 MG TABLET PO SCH (08:34)
[2019-07-20] MEDS: SERTRALINE HCL 50 MG TABLET PO SCH (08:35)
[2019-07-20] MEDS: CHOLECALCIFEROL (VIT D3) 1,000 UNITS TABLET PO SCH (08:35)
[2019-07-20] MEDS: MAGNESIUM CHLORIDE 64 MG ER TABLET PO SCH ×2 (08:42→20:50)
[2019-07-20] MEDS: LIDOCAINE 5% TRANSDERMAL PATCH TD SCH (08:43)
[2019-07-20] MEDS: TACROLIMUS ANHYDROUS 1 MG CAPSULE PO SCH ×2 (08:46→20:47)
[2019-07-20] MEDS: MAGNESIUM OXIDE 400 MG TABLET PO SCH (11:36)
[2019-07-20] MEDS: INSULIN LISPRO 100 UNITS/ML SQ PRN ×3 (12:01→21:48)
[2019-07-20 14:46] LABS: GLUCOMETER DEV NAME(LOC) 2WR.1C; GLUCOSE,POINT OF CARE 220 MG/DL (70-110)
[2019-07-20] MEDS ORDERED: MAGNESIUM SULFATE 1 GM in DEXTROSE 5%-WATER 50 ML IV ONE (15:30)
[2019-07-20 16:00] VITALS: BP 142/74
[2019-07-20] MEDS ORDERED: SODIUM CHLORIDE 0.9% 1,000 ML IV ONE (16:45)
[2019-07-20 17:51] LABS: GLUCOMETER DEV NAME(LOC) 2WR.1C; GLUCOSE,POINT OF CARE 211 MG/DL (70-110)
[2019-07-20] MEDS: -LIDODERM PATCH NOTE- MISC SCH (20:48)
[2019-07-20] MEDS: PRAVASTATIN SODIUM 40 MG TABLET PO SCH (20:49)
[2019-07-20 22:42] LABS: GLUCOMETER DEV NAME(LOC) 2WR.1C; GLUCOSE,POINT OF CARE 153 MG/DL (70-110)
[2019-07-20 23:49] VITALS: BP 149/87
[2019-07-21 06:08] LABS: GLUCOMETER DEV NAME(LOC) 2WR.2; GLUCOSE,POINT OF CARE 101 MG/DL (70-110)
[2019-07-21] MEDS: MYCOPHENOLATE MOFETIL 250 MG CAPSULE PO SCH ×2 (06:31→20:25)
[2019-07-21] MEDS: TACROLIMUS ANHYDROUS 1 MG CAPSULE PO SCH ×2 (06:31→20:25)
[2019-07-21] MEDS: FAMOTIDINE 20 MG TABLET PO SCH (06:32)
[2019-07-21] MEDS: SitaGLIPtin PHOSPHATE 50 MG TABLET PO SCH (07:47)
[2019-07-21] MEDS: FERROUS SULFATE 325 MG EC TABLET PO SCH (07:47)
[2019-07-21 07:50] LABS: CALCIUM, TOTAL 9.3 mg/dL (8.8-10.5); CREATININE 1.51 mg/dL (0.60-1.30); MAGNESIUM 1.8 mg/dL (1.80-2.40); POTASSIUM 4.7 mmol/L (3.5-5.1)
[2019-07-21] MEDS: CHOLECALCIFEROL (VIT D3) 1,000 UNITS TABLET PO SCH (07:50)
[2019-07-21] MEDS: ASPIRIN 81 MG EC TABLET PO SCH (07:50)
[2019-07-21] MEDS: HEPARIN SODIUM,PORCINE 5,000 UNITS/ML VIAL SQ SCH ×2 (07:50→20:26)
[2019-07-21] MEDS: PredniSONE 10 MG TABLET PO SCH (07:50)
[2019-07-21] MEDS: VITAMIN B COMP/VIT C/FOLIC ACID CAPSULE PO SCH (07:51)
[2019-07-21] MEDS: SERTRALINE HCL 50 MG TABLET PO SCH (07:51)
[2019-07-21] MEDS: MAGNESIUM CHLORIDE 64 MG ER TABLET PO SCH ×2 (07:51→20:29)
[2019-07-21] MEDS: LIDOCAINE 5% TRANSDERMAL PATCH TD SCH (07:52)
[2019-07-21 08:51] VITALS: BP 131/75
[2019-07-21] MEDS: INSULIN LISPRO 100 UNITS/ML SQ PRN ×2 (12:18→18:22)
[2019-07-21 12:39] LABS: GLUCOMETER DEV NAME(LOC) 2WR.1C; GLUCOSE,POINT OF CARE 152 MG/DL (70-110)
[2019-07-21 15:30] VITALS: BP 154/86
[2019-07-21 19:52] LABS: GLUCOMETER DEV NAME(LOC) 2WR.2; GLUCOSE,POINT OF CARE 212 MG/DL (70-110)
[2019-07-21] MEDS: PRAVASTATIN SODIUM 40 MG TABLET PO SCH (20:26)
[2019-07-21] MEDS: -LIDODERM PATCH NOTE- MISC SCH (20:29)
[2019-07-21] MEDS: ACETAMINOPHEN 325 MG TABLET PO PRN (20:42)
[2019-07-21 21:41] LABS: GLUCOMETER DEV NAME(LOC) 2WR.1C; GLUCOSE,POINT OF CARE 128 MG/DL (70-110)
[2019-07-22] MEDS: FAMOTIDINE 20 MG TABLET PO SCH (05:57)
[2019-07-22] MEDS: MYCOPHENOLATE MOFETIL 250 MG CAPSULE PO SCH ×2 (05:57→20:28)
[2019-07-22] MEDS: TACROLIMUS ANHYDROUS 1 MG CAPSULE PO SCH ×2 (05:58→20:29)
[2019-07-22 06:02] LABS: GLUCOMETER DEV NAME(LOC) 2WR.2; GLUCOSE,POINT OF CARE 98 MG/DL (70-110)
[2019-07-22 06:06] VITALS: BP 149/79
[2019-07-22 07:15] VITALS: BP 112/66
[2019-07-22] MEDS: CHOLECALCIFEROL (VIT D3) 1,000 UNITS TABLET PO SCH (08:41)
[2019-07-22] MEDS: SERTRALINE HCL 50 MG TABLET PO SCH (08:41)
[2019-07-22] MEDS: VITAMIN B COMP/VIT C/FOLIC ACID CAPSULE PO SCH (08:41)
[2019-07-22] MEDS: FERROUS SULFATE 325 MG EC TABLET PO SCH (08:41)
[2019-07-22] MEDS: SitaGLIPtin PHOSPHATE 50 MG TABLET PO SCH (08:41)
[2019-07-22] MEDS: HEPARIN SODIUM,PORCINE 5,000 UNITS/ML VIAL SQ SCH ×2 (08:42→20:28)
[2019-07-22] MEDS: PredniSONE 10 MG TABLET PO SCH (08:42)
[2019-07-22] MEDS: MAGNESIUM CHLORIDE 64 MG ER TABLET PO SCH ×2 (08:43→20:28)
[2019-07-22] MEDS: LIDOCAINE 5% TRANSDERMAL PATCH TD SCH (09:00)
[2019-07-22] MEDS: ASPIRIN 81 MG EC TABLET PO SCH (09:25)
[2019-07-22 12:37] LABS: GLUCOMETER DEV NAME(LOC) 2WR.2; GLUCOSE,POINT OF CARE 145 MG/DL (70-110)
[2019-07-22] MEDS: INSULIN LISPRO 100 UNITS/ML SQ PRN ×3 (12:43→20:53)
[2019-07-22 16:00] VITALS: BP 155/86
[2019-07-22 16:02] VITALS: BP 143/83
[2019-07-22 17:32] LABS: GLUCOMETER DEV NAME(LOC) 2WR.2; GLUCOSE,POINT OF CARE 199 MG/DL (70-110)
[2019-07-22] MEDS: PRAVASTATIN SODIUM 40 MG TABLET PO SCH (20:29)
[2019-07-22] MEDS: MELATONIN 5 MG TABLET PO PRN (20:34)
[2019-07-22] MEDS: ACETAMINOPHEN 325 MG TABLET PO PRN (20:34)
[2019-07-22 21:02] LABS: GLUCOMETER DEV NAME(LOC) 2WR.1C; GLUCOSE,POINT OF CARE 172 MG/DL (70-110)
[2019-07-23] VITALS: BP 146/82
[2019-07-23 06:02] LABS: GLUCOMETER DEV NAME(LOC) 2WR.2; GLUCOSE,POINT OF CARE 122 MG/DL (70-110)
[2019-07-23] MEDS: FAMOTIDINE 20 MG TABLET PO SCH (06:14)
[2019-07-23] MEDS: TACROLIMUS ANHYDROUS 1 MG CAPSULE PO SCH ×2 (06:14→20:34)
[2019-07-23] MEDS: MYCOPHENOLATE MOFETIL 250 MG CAPSULE PO SCH ×2 (06:14→20:35)
[2019-07-23 07:00] VITALS: BP 151/90
[2019-07-23 07:07] LABS: CALCIUM, TOTAL 9.3 mg/dL (8.8-10.5); CREATININE 1.44 mg/dL (0.60-1.30); MAGNESIUM 1.6 mg/dL (1.80-2.40); PHOSPHORUS 3.5 mg/dL (2.5-4.9); POTASSIUM 4.6 mmol/L (3.5-5.1)
[2019-07-23] MEDS: FERROUS SULFATE 325 MG EC TABLET PO SCH (07:43)
[2019-07-23] MEDS: HEPARIN SODIUM,PORCINE 5,000 UNITS/ML VIAL SQ SCH ×2 (07:44→20:33)
[2019-07-23] MEDS: VITAMIN B COMP/VIT C/FOLIC ACID CAPSULE PO SCH (08:22)
[2019-07-23] MEDS: SitaGLIPtin PHOSPHATE 50 MG TABLET PO SCH (08:23)
[2019-07-23] MEDS: ASPIRIN 81 MG EC TABLET PO SCH (08:23)
[2019-07-23] MEDS: SULFAMETHOX/TRIMETH DS 800-160 MG/TABLET PO SCH (08:23)
[2019-07-23] MEDS: CHOLECALCIFEROL (VIT D3) 1,000 UNITS TABLET PO SCH (08:23)
[2019-07-23] MEDS: SERTRALINE HCL 50 MG TABLET PO SCH (08:23)
[2019-07-23] MEDS: MAGNESIUM CHLORIDE 64 MG ER TABLET PO SCH ×2 (08:24→20:34)
[2019-07-23] MEDS: PredniSONE 10 MG TABLET PO SCH (08:24)
[2019-07-23] MEDS ORDERED: MAGNESIUM SULFATE 2 GM/WATER 50 ML IV ONE (09:15)
[2019-07-23] MEDS ORDERED: SODIUM CHLORIDE 0.9% 100 ML ONE (10:29)
[2019-07-23 13:09] LABS: GLUCOMETER DEV NAME(LOC) 2WR.2; GLUCOSE,POINT OF CARE 218 MG/DL (70-110)
[2019-07-23] MEDS: INSULIN LISPRO 100 UNITS/ML SQ PRN ×2 (13:14→17:36)
[2019-07-23 15:15] VITALS: BP 149/82
[2019-07-23 17:34] LABS: GLUCOMETER DEV NAME(LOC) 2WR.2; GLUCOSE,POINT OF CARE 247 MG/DL (70-110)
[2019-07-23] MEDS: PRAVASTATIN SODIUM 40 MG TABLET PO SCH (20:37)
[2019-07-23] MEDS: ACETAMINOPHEN 325 MG TABLET PO PRN (21:05)
[2019-07-23 22:38] LABS: GLUCOMETER DEV NAME(LOC) 2WR.1C; GLUCOSE,POINT OF CARE 98 MG/DL (70-110)
[2019-07-23 23:22] VITALS: BP 142/72
[2019-07-24 06:16] LABS: GLUCOMETER DEV NAME(LOC) 2WR.2; GLUCOSE,POINT OF CARE 90 MG/DL (70-110)
[2019-07-24] MEDS: FAMOTIDINE 20 MG TABLET PO SCH (06:26)
[2019-07-24] MEDS: MYCOPHENOLATE MOFETIL 250 MG CAPSULE PO SCH ×2 (06:26→20:11)
[2019-07-24] MEDS: TACROLIMUS ANHYDROUS 1 MG CAPSULE PO SCH ×2 (06:26→20:10)
[2019-07-24 07:40] VITALS: BP 157/84
[2019-07-24] MEDS: FERROUS SULFATE 325 MG EC TABLET PO SCH (09:16)
[2019-07-24] MEDS: ASPIRIN 81 MG EC TABLET PO SCH (09:16)
[2019-07-24] MEDS: PredniSONE 10 MG TABLET PO SCH (09:16)
[2019-07-24] MEDS: VITAMIN B COMP/VIT C/FOLIC ACID CAPSULE PO SCH (09:16)
[2019-07-24] MEDS: SERTRALINE HCL 50 MG TABLET PO SCH (09:16)
[2019-07-24] MEDS: SitaGLIPtin PHOSPHATE 50 MG TABLET PO SCH (09:17)
[2019-07-24] MEDS: HEPARIN SODIUM,PORCINE 5,000 UNITS/ML VIAL SQ SCH ×2 (09:17→20:11)
[2019-07-24] MEDS: CHOLECALCIFEROL (VIT D3) 1,000 UNITS TABLET PO SCH (09:17)
[2019-07-24] MEDS: MAGNESIUM CHLORIDE 64 MG ER TABLET PO SCH ×2 (09:18→20:12)
[2019-07-24 10:00] VITALS: BP 144/72
[2019-07-24] MEDS: INSULIN LISPRO 100 UNITS/ML SQ PRN (12:43)
[2019-07-24 13:03] LABS: GLUCOMETER DEV NAME(LOC) 2WR.2; GLUCOSE,POINT OF CARE 152 MG/DL (70-110)
[2019-07-24 15:30] VITALS: BP 146/82
[2019-07-24 17:51] LABS: GLUCOMETER DEV NAME(LOC) 2WR.1C; GLUCOSE,POINT OF CARE 172 MG/DL (70-110)
[2019-07-24] MEDS: ACETAMINOPHEN 325 MG TABLET PO PRN (19:56)
[2019-07-24] MEDS: MELATONIN 5 MG TABLET PO PRN (20:10)
[2019-07-24] MEDS: PRAVASTATIN SODIUM 40 MG TABLET PO SCH (20:12)
[2019-07-24 22:50] LABS: GLUCOMETER DEV NAME(LOC) 2WR.2; GLUCOSE,POINT OF CARE 112 MG/DL (70-110)
[2019-07-24 23:32] VITALS: BP 153/92
[2019-07-25] MEDS ORDERED: SLOMG PO (02:59)
[2019-07-25] MEDS ORDERED: INSU100V SQ (02:59)
[2019-07-25] MEDS ORDERED: SERT50TA12 PO (02:59)
[2019-07-25] MEDS: MYCOPHENOLATE MOFETIL 250 MG CAPSULE PO SCH (06:03)
[2019-07-25] MEDS: FERROUS SULFATE 325 MG EC TABLET PO SCH (06:03)
[2019-07-25] MEDS: FAMOTIDINE 20 MG TABLET PO SCH (06:04)
[2019-07-25] MEDS: TACROLIMUS ANHYDROUS 1 MG CAPSULE PO SCH (06:04)
[2019-07-25 06:15] LABS: GLUCOMETER DEV NAME(LOC) 2WR.2; GLUCOSE,POINT OF CARE 96 MG/DL (70-110)
[2019-07-25 06:42] VITALS: BP 143/77
[2019-07-25] MEDS: HEPARIN SODIUM,PORCINE 5,000 UNITS/ML VIAL SQ SCH (09:00)
[2019-07-25 12:38] VITALS: BP 124/70
[2019-07-25] MEDS ORDERED: ACET-66 PO (12:43)
[2019-07-25] MEDS ORDERED: FURO40 PO (12:50)
[2019-07-25] MEDS ORDERED: HYDR25TA84 PO (12:51)
[2019-07-25] MEDS ORDERED: MELA5TAB3 PO (12:54)
[2019-07-25] MEDS ORDERED: MYCO250C7 PO (12:55)
[2019-07-25] MEDS ORDERED: TRAM50TA4 PO (12:57)
[2019-07-25] MEDS ORDERED: MAGOX PO (12:58)
[2019-07-25] MEDS: ASPIRIN 81 MG EC TABLET PO SCH (13:34)
[2019-07-25] MEDS: SULFAMETHOX/TRIMETH DS 800-160 MG/TABLET PO SCH (13:34)
[2019-07-25] MEDS: VITAMIN B COMP/VIT C/FOLIC ACID CAPSULE PO SCH (13:35)
[2019-07-25] MEDS: SERTRALINE HCL 50 MG TABLET PO SCH (13:35)
[2019-07-25] MEDS: SitaGLIPtin PHOSPHATE 50 MG TABLET PO SCH (13:35)
[2019-07-25] MEDS: CHOLECALCIFEROL (VIT D3) 1,000 UNITS TABLET PO SCH (13:35)
[2019-07-25] MEDS: PredniSONE 10 MG TABLET PO SCH (13:35)
[2019-07-25] MEDS: MAGNESIUM CHLORIDE 64 MG ER TABLET PO SCH (13:36)
== END 2019-07-25 13:54 | disposition home or self-care (01) | DRG 194 ==
LOC: 2WR 15:00
PROVIDERS: ADMIT Physical Medicine & Rehabilitation; ATTEND Physical Medicine & Rehabilitation
DX: I13.0 Hypertensive heart and chronic kidney disease with heart failure and stage 1 through stage 4 chronic kidney disease, or unspecified chronic kidney disease (principal); E11.22 Type 2 diabetes mellitus with diabetic chronic kidney disease; I49.5 Sick sinus syndrome; N17.9 Acute kidney failure, unspecified; Z94.1 Heart transplant status; N18.3 Chronic kidney disease, stage 3 (moderate); E44.1 Mild protein-calorie malnutrition; I51.3 Intracardiac thrombosis, not elsewhere classified; R13.10 Dysphagia, unspecified; M62.81 Muscle weakness (generalized); I50.9 Heart failure, unspecified; E78.5 Hyperlipidemia, unspecified; I25.10 Atherosclerotic heart disease of native coronary artery without angina pectoris; I25.5 Ischemic cardiomyopathy; D64.9 Anemia, unspecified; Z83.3 Family history of diabetes mellitus; Z86.73 Personal history of transient ischemic attack (TIA), and cerebral infarction without residual deficits; Z95.810 Presence of automatic (implantable) cardiac defibrillator; Z87.01 Personal history of pneumonia (recurrent); Z68.23 Body mass index [BMI] 23.0-23.9, adult; Z95.1 Presence of aortocoronary bypass graft
CPT/HCPCS: 74230; 76700; 76770; 78226; 80197; 82570; 83735; 84100; 84156; 87081; 92507; 92526; 92610; 92611; 93005; 97110; 97116; 97150; 97163; 97166; 97530; 97535; 99366; A9537; J0885; J1644; J1815; J3475; J7030; J7050; J7060; J7507; J7517